=== PATIENT | male | born 1980 | race Caucasian/White ===

== ENCOUNTER 2016-05-23 08:06 | Emergency (ER) | payer SELFPAY ==
--- NOTE | 2016-05-23 17:07 | ER ---
ADMIT: 05/23/2016 RM/LOC: ER [facility] MR#: [id number] [id number] PARESH JEANNETTE A [address] [place] [address] Emergency Room Report SEX: M AGE: 36 : 1980 DATE: 05/23/2016 ADDENDUM: This 36-year-old white male coming in with chest pain. CBC, chemistry, EKG, and troponin all negative. This is more of a pleuritic type or a musculoskeletal type of discomfort. He also says he feels some little bumps, those are lymph nodes. I reassured him on that. Tylenol or Motrin. Follow up as needed. CONDITION ON DISCHARGE: Good. Otto Thorne MD/ tamiko JOB #: [id number] CC: Otto Thorne MD, Attending Physician UNKNOWN, Family Physician
== END 2016-05-23 10:47 | disposition home or self-care (01) ==
LOC: ER 08:06
DX: R07.89 Other chest pain (principal); F17.210 Nicotine dependence, cigarettes, uncomplicated